=== PATIENT | female | born 1935 | race Caucasian/White ===

== ENCOUNTER 2017-07-04 15:16 | Inpatient (IN) | payer OTHER ==
[~2017-07-04] VITALS: Ht 154.9 cm; Wt 70.1 kg
[~2017-07-04 15:16] MED LIST: ALTACE5 MG PO; ASPIRIN325 MG PO; BUSPAR5 MG PO; Bactrim,Septra DS 80 PO; CATAPRES-TTS 10.1 MG PO; CATAPRES0.1 MG PO; DEPAKOTE SPRINKLE PO; Depakote PO; Ecotrin PO; HYDRODIURIL,O12.5 M2 PO; K-Lor,Klor-Con PO; LABETALOL HCL200 MG PO; LASIX40 MG PO; Lopressor PO; NORVASC10 MG PO; Norvasc PO; OMEPRAZOLE40 MG PO; PREMARIN1.25 MG PO; PROTONIX40 MG PO; Phenergan PO; Preparation H PR; Protonix PO; RAMIPRIL5 MG PO; RISPERDAL2 MG PO; STOOL SOFTENER50 MG PO; Senokot S,Pericolace PO; Tylenol Regular Stre PO; VESICARE5 MG PO; Vicodin,Norco 5/325 PO; celeBREX PO
[2017-07-04 15:40] LABS: BASOPHIL COUNT 0.1 K/uL (0-0.1); EOSINOPHIL COUNT 0.2 K/uL (0-0.3); HEMATOCRIT 33.4 % (36.0-46.0); IMMATURE GRANULOCYTE (%) 1.7 % (0.0-0.7); IMMATURE GRANULOCYTE COUNT 0.3 K/uL; INSTRUMENT ABS NEUTROPHIL CT 7.6 K/uL; MCHC 34.7 G/DL (30.0-36.0); MONOCYTE (%) 10.2 % (3-12); MONOCYTE COUNT 1.5 K/uL (0-0.8); NEUTROPHIL (%) 52.3 % (45-76); NEUTROPHIL COUNT 7.6 K/uL (1.8-6.4); NRBC (%) 0.3 /100 WBC (0-0); RBC DIS.WIDTH-CV 13.2 % (11.8-14.6); RBC DIS.WIDTH-SD 42.9 % (39-53); RED BLOOD COUNT 3.63 M/uL (3.80-5.20); WHITE BLOOD COUNT 14.6 K/uL (4.1-10.2)
[2017-07-04 15:45] LABS: PLATELET COUNT 304 K/uL (156-360)
[2017-07-04 15:46] LABS: MEAN PLAT.VOLUME 9.6 uM^3 (9.5-12.4)
[2017-07-04 15:48] LABS: CHLORIDE 91 mEq/L (99-109); POTASSIUM 4.2 mEq/L (3.7-5.4); SODIUM 127 mEq/L (136-147)
[2017-07-04 15:49] LABS: GLUCOSE 94 mg/dL (70-99)
[2017-07-04 15:51] LABS: ANION GAP 9 MEQ/L (2-14)
[2017-07-04 15:53] LABS: GFR ESTIMATE (CALCULATED) > 59 mL/min/
[2017-07-04 15:54] LABS: UREA NITROGEN (BUN) 7 mg/dL (9-23)
[2017-07-04 17:02] LABS: ADD MIUA? YES; BILIRUBIN NEGATIVE; BLOOD NEGATIVE; COLOR YELLOW ((YELLOW)); GLUCOSE (STRIP) NEGATIVE; KETONES 5; LEUKOCYTES MODERATE; NITRITE NEGATIVE; PROTEIN (STRIP) NEGATIVE; SPECIFIC GRAVITY 1.009 (1.000-1.030); UROBILINOGEN 0.2 MG/DL (0.2-1.0)
[2017-07-04 17:06] LABS: BACTERIA NONE SEEN /HPF; EPITHELIAL CELLS RARE /HPF; MUCUS NONE SEEN /LPF; RED BLOOD CELLS 0-5 /HPF (0-5); UCUL ADDED? YES; WHITE BLOOD CELLS TNTC /HPF (0-5)
[2017-07-04] MEDS ORDERED: TRAMADOL HCL50 MG PO (20:43)
[2017-07-04] MEDS ORDERED: COLACE100 MG PO (20:44)
[2017-07-04] MEDS ORDERED: PREMARIN1.25 MG PO (20:45)
[2017-07-04] MEDS ORDERED: LASIX40 MG PO (20:45)
[2017-07-04] MEDS ORDERED: LISINOPRIL40 MG PO (20:46)
[2017-07-04] MEDS ORDERED: DEPAKOTE SPRIN125 MG PO ×2 (20:46→20:53)
[2017-07-04] MEDS ORDERED: LOPRESSOR100 M1 PO (20:47)
[2017-07-04] MEDS ORDERED: NORVASC10 MG PO (20:48)
[2017-07-04] MEDS ORDERED: SODIUM CHLORIDE1 G1 PO (20:49)
[2017-07-04] MEDS ORDERED: ZANTAC150 MG PO (20:50)
[2017-07-04] MEDS ORDERED: CHILD ASPIRIN81 M1 PO (20:51)
[2017-07-04] MEDS ORDERED: POTASSIUM CHLO10 ME4 PO (20:51)
[2017-07-04] MEDS ORDERED: DULCOLAX10 MG PR (20:56)
[2017-07-04] MEDS ORDERED: MILK OF MAGN PO (20:56)
[2017-07-04] MEDS ORDERED: FLEET ENEMA EX230 ML PR (20:57)
[2017-07-04] MEDS ORDERED: ACETAMINOPHEN325 M1 PO (20:58)
[2017-07-04] MEDS ORDERED: ZOFRAN4 MG PO (20:59)
[2017-07-04] MEDS ORDERED: DUONEB 2.5-0.5 M3 ML AEROSOL (21:00)
[2017-07-04] MEDS ORDERED: TRAZODONE HCL50 MG PO (21:00)
[2017-07-04 21:16] VITALS: BP 190/77
[2017-07-04 22:50] VITALS: BP 190/89
[2017-07-05 03:35] VITALS: BP 135/61
[2017-07-05 07:18] VITALS: BP 179/74
[2017-07-05 07:19] LABS: ANION GAP 8 MEQ/L (2-14); CHLORIDE 94 MEQ/L (99-109); POTASSIUM 4.5 MEQ/L (3.7-5.4); SAMPLE HEMOLYSIS CHECK 0; SAMPLE ICTERIC CHECK 0; SAMPLE LIPEMIA CHECK 0; SODIUM 128 MEQ/L (136-147)
[2017-07-05 07:25] LABS: ALKALINE PHOSPHATASE 33 IU/L (3-129); GFR ESTIMATE (CALCULATED) > 59 mL/min/; GLUCOSE 87 mg/dL (70-99); UREA NITROGEN (BUN) 7 mg/dL (9-23)
[2017-07-05 11:58] VITALS: BP 163/63
[2017-07-05 15:41] VITALS: BP 185/75
[2017-07-05 20:06] VITALS: BP 145/64
[2017-07-06 00:13] VITALS: BP 158/79
[2017-07-06 07:07] LABS: HEMATOCRIT 33.8 % (36.0-46.0); MCH 31.8 PG (29.0-34.0); MCHC 33.7 G/DL (30.0-36.0); MCV 94.4 FL (83-99); MEAN PLAT.VOLUME 10.3 uM^3 (9.5-12.4); PLATELET COUNT 305 K/uL (156-360); RBC DIS.WIDTH-CV 13.6 % (11.8-14.6); RBC DIS.WIDTH-SD 46.5 % (39-53); RED BLOOD COUNT 3.58 M/uL (3.80-5.20); WHITE BLOOD COUNT 11.5 K/uL (4.1-10.2)
[2017-07-06 07:29] LABS: ALKALINE PHOSPHATASE 33 IU/L (3-129); ANION GAP 9 MEQ/L (2-14); CHLORIDE 96 MEQ/L (99-109); GFR ESTIMATE (CALCULATED) > 59 mL/min/; GLUCOSE 88 mg/dL (70-99); POTASSIUM 3.9 MEQ/L (3.7-5.4); SAMPLE HEMOLYSIS CHECK 0; SAMPLE ICTERIC CHECK 0; SAMPLE LIPEMIA CHECK 0; SODIUM 130 MEQ/L (136-147); TOTAL BILIRUBIN 1.1 MG/DL (0.0-1.0); UREA NITROGEN (BUN) 7 mg/dL (9-23)
[2017-07-06 07:57] VITALS: BP 189/92
[2017-07-06 15:25] VITALS: BP 125/85
[2017-07-06 23:28] VITALS: BP 144/53
[2017-07-07 08:38] VITALS: BP 160/85
[2017-07-07] MEDS ORDERED: BACTRIM,SEPT1 TABLE1 PO (12:23)
[2017-07-07 14:55] VITALS: BP 130/76
== END 2017-07-07 15:10 | DRG 690 ==
LOC: EME 15:16 → EDOF 18:00 → 2EAST 18:00 → ENRESERV 18:40 → 2EAST 20:36 → ENPENDDIS 07-07 → 2EAST 07-07 15:10
PROVIDERS: Emergency Medicine; Family Medicine; Internal Medicine
DX: N39.0 Urinary tract infection, site not specified (principal); E87.1 Hypo-osmolality and hyponatremia; F05 Delirium due to known physiological condition; C85.90 Non-Hodgkin lymphoma, unspecified, unspecified site; F41.9 Anxiety disorder, unspecified; R33.8 Other retention of urine; D64.9 Anemia, unspecified; E66.9 Obesity, unspecified; K21.9 Gastro-esophageal reflux disease without esophagitis; I10 Essential (primary) hypertension; F31.9 Bipolar disorder, unspecified; B96.89 Other specified bacterial agents as the cause of diseases classified elsewhere; F03.90 Unspecified dementia, unspecified severity, without behavioral disturbance, psychotic disturbance, mood disturbance, and anxiety; Z86.718 Personal history of other venous thrombosis and embolism; Z90.710 Acquired absence of both cervix and uterus; Z88.0 Allergy status to penicillin; Z88.5 Allergy status to narcotic agent; Z91.040 Latex allergy status; Z23 Encounter for immunization; Z68.29 Body mass index [BMI] 29.0-29.9, adult; Z90.49 Acquired absence of other specified parts of digestive tract; Z91.041 Radiographic dye allergy status; Z74.01 Bed confinement status
CPT/HCPCS: 70450; 80048; 80053; 81003; 83605; 85025; 85027; 87040; 87077; 87086; 87186; 93971; 99202; 99281; 99285; J0696; J0744; J1650; J7030; J7050